=== PATIENT | male | born 1995 | race American Indian/Alaskan Native ===

== ENCOUNTER 2016-07-26 11:46 | Emergency (ER) | payer MEDICAID ==
[2016-07-26 12:15] VITALS: BP 121/67; PULSE 88; RESP 18; TEMP 98.7; O2SAT 98
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
== END 2016-07-26 13:09 | disposition left against medical advice (07) ==
LOC: C.ER 11:46
DX: S80.811A Abrasion, right lower leg, initial encounter (principal); Y04.0XXA Assault by unarmed brawl or fight, initial encounter; Y92.414 Local residential or business street as the place of occurrence of the external cause